=== PATIENT | male | born 1970 | race Caucasian/White ===

== ENCOUNTER 2023-01-15 03:16 | Outpatient (CLI) | payer MEDICAID, SELFPAY ==
[2023-01-15 12:09] LABS: HCT 43.8 % (40.0-50.0); HGB 14.5 g/dL (13.5-17.5); MCH 29.9 pg (27.0-33.0); MCHC 33.1 % (32.0-36.0); MCV 90 fL (80-95); MPV 9.9 fL (8.0-11.0); Platelet Count 324 10^3/uL (130-400); RBC 4.85 10^6/uL (4.36-5.78); WBC 5.91 10^3/uL (4.4-10.8)
[2023-01-15 12:32] LABS: ALT 28 U/L (16-63); AST 15 U/L (15-37); Alkaline Phosphatase 47 U/L (46-116); Anion Gap 4.8 mmol/L (3-11); BUN 17 mg/dL (7-18); Bilirubin, Total 0.3 mg/dL (0.2-1.0); CO2 31.2 mmol/L (21.0-32.0); CREATININE 1.1 mg/dL (0.70-1.30); Calcium 8.8 mg/dL (8.5-10.1); Calculated LDL 108 mg/dL (<100); Chloride 106 mmol/L (98-107); Cholesterol 197 mg/dL (<200); Estimated GFR 80.27 (mL/min/1.73m2); Glucose 106 mg/dL (74-106); HDL Cholesterol 84 mg/dL (40-60); Potassium 4.2 mmol/L (3.5-5.1); Sodium 142 mmol/L (136-145); TSH (W/Ref FT4) 1.68 uIU/mL (0.36-3.74); Total Protein 7.3 g/dL (6.4-8.2); Triglyceride 26 mg/dL (<150)
== END 2023-01-15 03:17 | disposition home or self-care (01) ==
LOC: LOS 03:16
PROVIDERS: PCP Nurse Practitioner Family; Visit Provider Nurse Practitioner Family
DX: R03.0 Elevated blood-pressure reading, without diagnosis of hypertension (principal); F41.8 Other specified anxiety disorders; L71.8 Other rosacea; I78.1 Nevus, non-neoplastic; E78.89 Other lipoprotein metabolism disorders
CPT/HCPCS: 36415; 80053; 80061; 85027; 84443

== ENCOUNTER 2025-01-29 03:28 | Outpatient (CLI) | payer MEDICAID, SELFPAY ==
[2025-01-29 12:56] LABS: ALT 17 U/L (16-63); AST 15 U/L (15-37); Alkaline Phosphatase 58 U/L (46-116); Anion Gap 4.2 mmol/L (3-11); BUN 16 mg/dL (7-18); Bilirubin, Total 0.6 mg/dL (0.2-1.0); CO2 30.8 mmol/L (21.0-32.0); Calculated LDL 127 mg/dL (<100); Chloride 105 mmol/L (98-107); Cholesterol 215 mg/dL (<200); Estimated GFR 88.88 (mL/min/1.73m2); Glucose 98 mg/dL (74-106); HDL Cholesterol 76 mg/dL (>or=40); Sodium 140 mmol/L (136-145); Total Protein 7.2 g/dL (6.4-8.2); Triglyceride 64 mg/dL (<150)
[2025-01-29 18:19] LABS: PSA, Screening 0.8 ng/mL (<=3.5)
== END 2025-01-29 03:29 | disposition home or self-care (01) ==
LOC: LOS 03:28
PROVIDERS: PCP Nurse Practitioner Family; Visit Provider Nurse Practitioner Family
DX: Z00.00 Encounter for general adult medical examination without abnormal findings (principal); F41.8 Other specified anxiety disorders; R03.0 Elevated blood-pressure reading, without diagnosis of hypertension; Z12.5 Encounter for screening for malignant neoplasm of prostate
CPT/HCPCS: 36415; 80053; 80061; 84153